=== PATIENT | female | born 1960 | race Hispanic/Latino ===

== ENCOUNTER 2018-03-18 19:56 | Emergency (ER) | payer MEDICARE ==
[2018-03-18 21:09] LABS: Basophils % (Auto) 0.5 % (0.0-1.8); Eosinophils # (Auto) 0.1 K/mm3 (0.0-0.4); Eosinophils % (Auto) 0.9 % (0.0-4.3); Hematocrit 35.7 % (30.3-42.9); Hemoglobin 11.7 gm/dl (10.1-14.3); Lymphocytes # (Auto) 1.9 K/mm3 (1.2-5.4); Lymphocytes % (Auto) 30.1 % (13.4-35.0); Mean Corpuscular HGB Conc 33 % (30-34); Mean Corpuscular Hemoglobin 28 pg (28-32); Mean Corpuscular Volume 86 fl (79-97); Monocytes # (Auto) 0.6 K/mm3 (0.0-0.8); Monocytes % (Auto) 9.4 % (0.0-7.3); Platelet Count 347 K/mm3 (140-440); Red Blood Count 4.15 M/mm3 (3.65-5.03); Red Cell Distribution Width 14.8 % (13.2-15.2)
[2018-03-18 21:22] LABS: BUN/Creatinine Ratio 18; Blood Urea Nitrogen 9 mg/dL (7-17); Hemolysis Index 4
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
[2018-03-18 22:03] LABS: Bilirubin,Urine NEG (Negative); Blood,Urine NEG (Negative); Calcium Oxalate Crystals,Urine 1+; Color,Urine Yellow (Yellow); Mucus,Urine 3+ /HPF; Protein,Urine <15 mg/dL mg/dL (Negative)
[2018-03-18 22:44] LABS: Amphetamine Screen,Urine PRESUMPTIVE NEGATIVE; Benzodiazepines Screen,Urine PRESUMPTIVE NEGATIVE; Cannabinoid Screen,Urine PRESUMPTIVE NEGATIVE; Cocaine Screen,Urine PRESUMPTIVE NEGATIVE; Methadone Screen,Urine PRESUMPTIVE NEGATIVE; Opiate Screen,Urine PRESUMPTIVE NEGATIVE
[2018-03-19] MEDS ORDERED: ATIVAN IM ONE (10:08)
[2018-03-19] MEDS: RisperDAL PO SCH ×3 (12:17→22:59)
[2018-03-19] MEDS: TRILAFON PO SCH ×2 (12:17→22:40)
[2018-03-19] MEDS ORDERED: MOTRIN PO ONE (21:00)
[2018-03-19] MEDS: TRILEPTAL PO SCH (22:40)
[2018-03-19] MEDS: DESYREL PO SCH ×2 (22:55→22:59)
[2018-03-20] MEDS ORDERED: TRILEPTAL PO SCH (10:00)
[2018-03-20] MEDS: RisperDAL PO SCH ×2 (12:14→22:25)
[2018-03-20] MEDS: TRILAFON PO SCH ×2 (12:15→22:25)
[2018-03-20] MEDS ORDERED: MOBIC PO ONE (18:05)
[2018-03-20] MEDS ORDERED: ELAVIL PO ONE (22:00)
[2018-03-20] MEDS: TRILEPTAL PO SCH (22:25)
[2018-03-20] MEDS: DESYREL PO SCH (22:25)
[2018-03-21 09:33] VITALS: BP 118/74
[2018-03-21] MEDS ORDERED: MOBIC PO ONE (18:05)
== END 2018-03-21 09:05 ==
LOC: EEVIPCON 19:56 → ED 19:56
DX: F23 Brief psychotic disorder (principal); F31.9 Bipolar disorder, unspecified; F32.9 Major depressive disorder, single episode, unspecified; M19.90 Unspecified osteoarthritis, unspecified site; Z88.0 Allergy status to penicillin; Z88.2 Allergy status to sulfonamides; Z88.8 Allergy status to other drugs, medicaments and biological substances; Z91.02 Food additives allergy status
CPT/HCPCS: 36415; 80048; 80307; 81001; 85025; 96372; 99285; G0480; J2060; 80320